=== PATIENT | female | born 1995 | race Caucasian/White ===

== ENCOUNTER → 2017-01-10 | Outpatient (CLI) | payer OTHER, MEDICAID ==
--- NOTE | 2017-01-10 17:08 | RADIOLOGY REPORT (SQ) ---
EXAM DESCRIPTION: U/S OB TRANSVAGINAL W/O DOP COMPLETED DATE/TIME: 01/10/2017 4:36 pm REASON FOR STUDY: ENCOUNTER FOR SUPERVISION OF OTHER NORMAL Z34.01 ENCNTR FOR SUPRVSN OF NORMAL FIRST PREG, FIRST TRIMES COMPARISON: None. TECHNIQUE: Transvaginal static and realtime grayscale images acquired of the pelvis. Additional teodora cted spectral and color Doppler images recorded. All images stored on PACs. bHCG: Not available. LIMITATIONS: None. FINDINGS: There appears to be a gestational sac. No pole or yolk sac was identified. Cardiac motion was not seen. Size of the gestational sac suggested gestation of 5 weeks 5 days with an anaid mated date of delivery of 09/07/2017. SUBCHORIONIC BLEED: There is a small hypoechoic area measuring 6 x 17 x 8 mm that may represent a sub chorionic bleed. SIZE OF BLEED: See above UTERUS: 9.8 x 5.9 x 5.5 cm. No masses no anomalies. CERVICAL LENGTH: 2.7 cm. Closed. RIGHT ADNEXA: Normal ovary, measuring 2.3 x 2.2 x 1.6 cm. No adnexal free fluid. No adnexal masses. LEFT ADNEXA: Ovary measures 2.8 x 3 x 2.2 cm. There is a 1 x 1.1 x 0.9 cm cyst. No adnexal free fluid. No adnexal masses. FREE FLUID: None. OTHER: No other significant finding. IMPRESSION: There is what appears to be a gestational sac, but the pole is not evident. From the gestational sac size, it appears that the gestation would be 5 weeks 5 days. Follow-up as clinic ally indicated. Trimester of : First - 0 to 13 weeks. TECHNICAL DOCUMENTATION: JOB ID: [id number] [employer]- All Rights Reserved
== END ==
LOC: RAD 15:52
PROVIDERS: ATTEND Nurse Practitioner Women's Health
DX: Z34.01 Encounter for supervision of normal first pregnancy, first trimester (principal)
CPT/HCPCS: 76817

== ENCOUNTER → 2017-01-11 | Outpatient (CLI) | payer SELFPAY | LOC: OCH 16:16 | DX: O02.1 Missed abortion (principal) | CPT/HCPCS: 36415; 84702 ==

== ENCOUNTER → 2017-01-13 | Outpatient (CLI) | payer OTHER, MEDICAID | LOC: OCH 08:01 | DX: O02.1 Missed abortion (principal) | CPT/HCPCS: 36415; 84702 ==

== ENCOUNTER → 2017-01-23 | Outpatient (CLI) | payer SELFPAY ==
--- NOTE | 2017-01-23 16:45 | RADIOLOGY REPORT (SQ) ---
EXAM DESCRIPTION: U/S OB TRANSVAGINAL W/O DOP COMPLETED DATE/TIME: 01/23/2017 3:06 pm REASON FOR STUDY: Z34.01 ENCOUNTER FOR SUPERVISION OF NORMAL FIRST , FIRST TRIMESTER Z34.01 ENCNTR FOR SUPRVSN OF NORMAL FIRST PREG, FIRST TRIMES COMPARISON: OB ultrasound 01/10/2017 TECHNIQUE: Transvaginal static and realtime grayscale images acquired of the pelvis. Additional teodora cted spectral and color Doppler images recorded. All images stored on PACs. bHCG: None available LIMITATIONS: None. FINDINGS: There is an intrauterine gestational sac which is irregular in shape. No embryo or yolk s ac identified. By mean sac diameter, estimated age should be 7 weeks 0 days. This is likely a bligh maricarmen ovum. Report was called to Taylor Bahena NP at the [facility], 1500 hours 01/23/2017. UTERUS: No masses. Uterus is 9 x 6 x 5 cm in size CERVICAL LENGTH: 3.7 cm. Closed. RIGHT ADNEXA: Normal ovary with normal vascular flow. Right ovary 2.5 x 2.3 x 1.8 cm in size. No adnexal free fluid. No adnexal masses. LEFT ADNEXA: Normal ovary with normal vascular flow. Left ovary 2.9 x 2.1 x 2 cm in size. No adnexal free fluid. No adnexal masses. FREE FLUID: None. OTHER: No other significant finding. IMPRESSION: Irregular enlarged gestational sac without embryo or yolk sac. This is likely a blighte d ovum. Report called to Taylor Bahena NP at the [facility], 1500 hours 01/23/2017. Trimester of : First - 0 to 13 weeks. TECHNICAL DOCUMENTATION: JOB ID: [id number] [employer]- All Rights Reserved
== END ==
LOC: RAD 14:14
PROVIDERS: ATTEND Nurse Practitioner Women's Health
DX: Z34.01 Encounter for supervision of normal first pregnancy, first trimester (principal)
CPT/HCPCS: 76817